=== PATIENT | male | born 1980 | race Caucasian/White ===

== ENCOUNTER 2023-03-21 14:40 | Emergency (ER) | payer SELFPAY ==
[2023-03-21] VITALS (8 sets, daily range): BP systolic 141–144; BP diastolic 85–92; PULSE 63–77; RESP 13–19; TEMP 36.6; O2SAT 93–98; BMI 29.5
--- NOTE | 2023-03-21 15:11 | DI.RAD.S_ITS ---
PROCEDURE: XR CHEST 1V INDICATIONS: chest pain TECHNIQUE: One view of the chest was acquired. COMPARISON: None. FINDINGS: Surgical changes and devices: None. Lungs and pleura: Lungs are clear. No pleural effusions or pneumothorax. Mediastinum: Mediastinal contours appear normal. Heart size is normal. Bones and chest wall: No suspicious bony lesions. Overlying soft tissues appear unremarkable. IMPRESSION: Portable chest within normal limits for age. Approved by: Arvin Marrero M.D. on 03/21/2023 at 16:07
[2023-03-21 15:52] LABS: Add Manual Diff / Slide Review NO; Basophils Absolute Auto 0 /uL (0-100); Basophils Percent Auto 0.6 % (0-2); Eosinophils Absolute Auto 100 /uL (0-450); Eosinophils Percent Auto 1.2 % (2-4); Hematocrit 46.8 % (41-53); Hemoglobin 16.1 g/dL (13.5-17.5); Lymphocytes Absolute Auto 1900 /uL (1100-4500); Lymphocytes Percent Auto 27.2 % (25-40); Mean Corpuscular HGB Conc 34.5 % (30-36); Mean Corpuscular Volume 95.8 fL (80-100); Monocytes Absolute Auto 600 /uL (0-900); Monocytes Percent Auto 8.3 % (3-14); Neutrophils Absolute Auto 4400 /uL (1500-7000); Neutrophils Percent Auto 62.7 % (50-75); Platelet Count 241 X10^3/uL (150-400); Red Blood Cell Count 4.89 X10^6/uL (4.5-5.9); Red Cell Distribution Width 13.4 % (11.6-14.8); White Blood Cell Count 7.1 X10^3/uL (4.5-11.0)
[2023-03-21 15:59] LABS: Prothrombin Time 11.4 SECONDS (10.1-12.7)
[2023-03-21 16:03] LABS: Alanine Aminotransferase 36 IU/L (<50); Albumin 4.4 g/dL (3.5-5.0); Albumin Globulin Ratio 1.5 (1.0-2.8); Alkaline Phosphatase 59 U/L (38-126); Aspartate Aminotransferase 27 IU/L (17-59); BUN Creatinine Ratio 13.4 (6-22); Bilirubin Total 1.3 mg/dL (0.2-1.3); Blood Urea Nitrogen 13 mg/dL (9-20); Calcium 9.7 mg/dL (8.4-10.2); Carbon Dioxide 24 mmol/L (22-32); Chloride 105 mmol/L (98-107); Creatine Kinase 189 U/L (55-170); Estimated Glomerular Filt Rate > 60 mL/min (>60); Glucose 100 mg/dL (70-100); HEMOLYSIS < 15 (0-50); Potassium 3.9 mmol/L (3.4-5.1); Sodium 139 mmol/L (137-145); Total Protein 7.4 g/dL (6.3-8.2)
--- NOTE | 2023-03-21 16:04 | ED.SYNCOPE ---
HPI - Syncope <Angelica Wilcox PA-C - Last Filed: 03/21/23 17:36> General Chief Complaint: Syncope Stated Complaint: working with black mold fainted at home Time Seen by Provider: 03/21/23 15:19 Source: patient Mode of arrival: Ambulatory History of Present Illness HPI narrative: 42-year-old male with no reported past medical history presents to the ED status post a syncopal episode that occurred last night. Patient states that he was sitting on a chair, had had 1 beer, he felt lightheaded and then passed out. The episode was witnessed by his boss who noted that he was out for about less than a minute prior to regaining consciousness. Patient states that he has never had syncope prior to this. Patient does not have a history of seizures. Patient had a prodromal sensation of lightheadedness to passing out. Patient has no cardiac history. Patient denies fever, chills, chest pain, shortness of breath, nausea, vomiting, abdominal pain. Patient states that he felt somewhat out of it for about an hour after regaining consciousness yesterday, but has felt fine since then. Patient comes into the ED today to be evaluated so he can be cleared to go back to work. Patient states he is somewhat concerned about mold toxicity, since he has been cleaning out a trailer with a lot of black mold without wearing PPE. Related Data Home Medications Medication Instructions Recorded Confirmed No Known Home Medications 03/21/23 03/21/23 Allergies Allergy/AdvReac Type Severity Reaction Status Date / Time No Known Drug Allergies Allergy Verified 03/21/23 15:11 Review of Systems <Angelica Wilcox PA-C - Last Filed: 03/21/23 17:36> Review of Systems ROS Unobtainable: All systems reviewed & are unremarkable except as noted in HPI and below Constitutional Constitutional: Denies chills, Denies fatigue, Denies fever(s), Denies frequent falls, Denies lethargy and Denies weakness Eyes Eyes: Denies change in vision, Denies eye discharge, Denies irritation and Denies loss of vision ENT Ears, Nose, Mouth, and Throat: Denies change in voice, Denies dizziness, Denies neck pain, Denies sore throat and Denies throat swelling Cardiovascular Cardiovascular: Denies chest pain, Reports syncope, Denies irregular heart rhythm, Reports lightheadedness, Denies palpitations, Denies dyspnea, Denies dyspnea on exertion and Denies orthopnea Respiratory Respiratory: Denies cough, Denies dyspnea, Denies dyspnea on exertion and Denies wheezing Gastrointestinal Gastrointestinal: Denies abdominal pain, Denies change in bowel habits, Denies diarrhea, Denies nausea and Denies vomiting Genitourinary Genitourinary: Denies hematuria, Denies flank pain, Denies urinary incontinence and Denies urinary urgency Musculoskeletal Musculoskeletal: Denies back pain, Denies muscle weakness, Denies neck pain, Denies numbness and Denies tingling Integumentary/Breasts Skin/Breast: Denies pruritus, Denies erythema, Denies rash and Denies wounds Neurologic Neurologic: Denies behavioral changes, Denies confusion, Denies dizziness, Reports syncope, Denies frequent falls, Denies loss of vision, Denies numbness, Denies tingling and Denies weakness Psychiatric Psychiatric: Denies anxiety, Denies behavioral changes, Denies confusion, Denies depression, Denies homicidal ideation and Denies suicidal ideation Endocrine Endocrine: Denies fatigue, Denies flushing and Denies palpitations Hematologic/Lymphatic Hematologic/Lymphatic: Denies easy bruising Allergic/Immunologic Allergic/Immunologic: Denies urticaria, Denies throat swelling and Denies wheezing Patient History <Angelica Wilcox PA-C - Last Filed: 03/21/23 17:36> Social History Smoking Status: Never smoker Smoking Status: Never smoker alcohol intake frequency: a few times a week Alcohol type: beer Substance Use Type: does not use Exam <Angelica Wilcox PA-C - Last Filed: 03/21/23 17:36> Narrative Exam Narrative: Const General:?cooperative, healthy appearing and comfortable [facility] Head:?normal to inspection Ears:?hearing grossly normal bilaterally Nose:?external nose normal Face and sinus:?normal facial exam and sinuses nontender Mouth:?oral mucosae normal Throat:?posterior oropharynx normal Eyes General:?appearance normal, both eyes and all related structures Neck Neck:?normal visual inspection and no lymphadenopathy noted Resp Effort & Inspection:?normal respiratory effort Auscultation:?clear to auscultation bilaterally Cardio Rate:?regular rate Rhythm:?regular rhythm Neuro General:?patient alert, patient awake and patient oriented x3 Initial Vital Signs Initial Vital Signs: Vital Signs Temperature 98 F 03/21/23 15:06 Pulse Rate 72 03/21/23 15:06 Respiratory Rate 17 03/21/23 15:06 Blood Pressure 144/92 H 03/21/23 15:06 Pulse Oximetry 98 03/21/23 15:06 Oxygen Delivery Method Room Air 03/21/23 15:06 <Tarun Mir DO - Last Filed: 03/21/23 17:49> Initial Vital Signs Initial Vital Signs: Vital Signs Temperature 98 F 03/21/23 15:06 Pulse Rate 72 03/21/23 15:06 Respiratory Rate 17 03/21/23 15:06 Blood Pressure 144/92 H 03/21/23 15:06 Pulse Oximetry 98 03/21/23 15:06 Oxygen Delivery Method Room Air 03/21/23 15:06 Course <Angelica Wilcox PA-C - Last Filed: 03/21/23 17:36> Orders Ordered: ED Orders 03/21/23 15:11 XR chest 1V Stat EKG-12 Lead Stat 03/21/23 15:34 Complete Blood Count AUTO DIFF Stat Comprehensive Metabolic Panel Stat Prothrombin Time INR Stat Troponin & CK Cardiac Panel Stat Vital Signs Vital signs: Vital Signs - 8 hr 03/21/23 15:06 03/21/23 15:29 03/21/23 15:30 Temperature 98 F Pulse Rate 72 75 67 Respiratory Rate 17 13 Blood Pressure 144/92 H Pulse Oximetry 98 94 93 Oxygen Delivery Method Room Air 03/21/23 16:00 03/21/23 16:30 03/21/23 17:00 Temperature Pulse Rate 63 66 74 Respiratory Rate 14 15 17 Blood Pressure Pulse Oximetry 93 94 93 Oxygen Delivery Method 03/21/23 17:28 03/21/23 17:28 03/21/23 17:30 Temperature Pulse Rate 77 65 Respiratory Rate 19 19 Blood Pressure 141/85 H Pulse Oximetry 94 96 Oxygen Delivery Method <DO Wes Quinonez Last Filed: 03/21/23 17:49> Orders Ordered: ED Orders 03/21/23 15:11 XR chest 1V Stat EKG-12 Lead Stat 03/21/23 15:34 Complete Blood Count AUTO DIFF Stat Comprehensive Metabolic Panel Stat Prothrombin Time INR Stat Troponin & CK Cardiac Panel Stat Vital Signs Vital signs: Vital Signs - 8 hr 03/21/23 15:06 03/21/23 15:29 03/21/23 15:30 Temperature 98 F Pulse Rate 72 75 67 Respiratory Rate 17 13 Blood Pressure 144/92 H Pulse Oximetry 98 94 93 Oxygen Delivery Method Room Air 03/21/23 16:00 03/21/23 16:30 03/21/23 17:00 Temperature Pulse Rate 63 66 74 Respiratory Rate 14 15 17 Blood Pressure Pulse Oximetry 93 94 93 Oxygen Delivery Method 03/21/23 17:28 03/21/23 17:28 03/21/23 17:30 Temperature Pulse Rate 77 65 Respiratory Rate 19 19 Blood Pressure 141/85 H Pulse Oximetry 94 96 Oxygen Delivery Method MDM - Syncope <Angelica Wilcox PA-C - Last Filed: 03/21/23 17:36> Lab Data 03/21/23 15:34 03/21/23 15:34 Labs: Lab Results 03/21/23 03/21/23 03/21/23 Range/Units 15:34 15:34 15:34 WBC 7.1 (4.5-11.0) X10^3/uL RBC 4.89 (4.5-5.9) X10^6/uL Hgb 16.1 (13.5-17.5) g/dL Hct 46.8 (41-53) % MCV 95.8 (80-100) fL MCH 33.0 (26-34) PG MCHC 34.5 (30-36) % RDW 13.4 (11.6-14.8) % Plt Count 241 (150-400) X10^3/uL Neut % (Auto) 62.7 (50-75) % Lymph % (Auto) 27.2 (25-40) % [place] % (Auto) 8.3 (3-14) % Eos % (Auto) 1.2 L (2-4) % Baso % (Auto) 0.6 (0-2) % Neut # (Auto) 4400 (5525-8415) /uL Lymph # (Auto) 1900 (7795-8914) /uL [place] # (Auto) 600 (0-900) /uL Eos # (Auto) 100 (0-450) /uL Baso # (Auto) 0 (0-100) /uL PT 11.4 (10.1-12.7) SECONDS INR 1.0 (0.9-1.3) Sodium 139 (137-145) mmol/L Potassium 3.9 (3.4-5.1) mmol/L Chloride 105 (98-107) mmol/L Carbon Dioxide 24 (22-32) mmol/L BUN 13 (9-20) mg/dL Creatinine 0.97 (0.66-1.25) mg/dL Estimated GFR > 60 (>60) mL/min BUN/Creatinine Ratio 13.4 (6-22) Glucose 100 (70-100) mg/dL Calcium 9.7 (8.4-10.2) mg/dL Total Bilirubin 1.3 (0.2-1.3) mg/dL AST 27 (17-59) IU/L ALT 36 (<50) IU/L Alkaline Phosphatase 59 (38-126) U/L Total Creatine Kinase 189 H (55-170) U/L Troponin I < 0.012 (0.01-0.034) ng/mL Total Protein 7.4 (6.3-8.2) g/dL Albumin 4.4 (3.5-5.0) g/dL Globulin 3.0 (1.7-4.1) g/dL Albumin/Globulin Ratio 1.5 (1.0-2.8) MDM Narrative Medical decision making narrative: 42-year-old male with no reported past medical history presents to the ED status post a syncopal episode that occurred last night. Obtained EKG, chest x-ray, labs, troponin. EKG is normal sinus rhythm with no acute ST-T changes. Chest x-ray without acute findings. Labs and troponin within normal limits. Based on history and physical exam, labs, patient's symptoms most consistent with vasovagal syncope. Recommend good hydration. Patient cleared for work. ED return precautions discussed with patient. Patient verbalized understanding. Medical records reviewed: Yes <Tarun Mir, DO - Last Filed: 03/21/23 17:49> Lab Data Labs: Lab Results 03/21/23 03/21/23 03/21/23 Range/Units 15:34 15:34 15:34 WBC 7.1 (4.5-11.0) X10^3/uL RBC 4.89 (4.5-5.9) X10^6/uL Hgb 16.1 (13.5-17.5) g/dL Hct 46.8 (41-53) % MCV 95.8 (80-100) fL MCH 33.0 (26-34) PG MCHC 34.5 (30-36) % RDW 13.4 (11.6-14.8) % Plt Count 241 (150-400) X10^3/uL Neut % (Auto) 62.7 (50-75) % Lymph % (Auto) 27.2 (25-40) % [place] % (Auto) 8.3 (3-14) % Eos % (Auto) 1.2 L (2-4) % Baso % (Auto) 0.6 (0-2) % Neut # (Auto) 4400 (7334-6376) /uL Lymph # (Auto) 1900 (7998-0826) /uL [place] # (Auto) 600 (0-900) /uL Eos # (Auto) 100 (0-450) /uL Baso # (Auto) 0 (0-100) /uL PT 11.4 (10.1-12.7) SECONDS INR 1.0 (0.9-1.3) Sodium 139 (137-145) mmol/L Potassium 3.9 (3.4-5.1) mmol/L Chloride 105 (98-107) mmol/L Carbon Dioxide 24 (22-32) mmol/L BUN 13 (9-20) mg/dL Creatinine 0.97 (0.66-1.25) mg/dL Estimated GFR > 60 (>60) mL/min BUN/Creatinine Ratio 13.4 (6-22) Glucose 100 (70-100) mg/dL Calcium 9.7 (8.4-10.2) mg/dL Total Bilirubin 1.3 (0.2-1.3) mg/dL AST 27 (17-59) IU/L ALT 36 (<50) IU/L Alkaline Phosphatase 59 (38-126) U/L Total Creatine Kinase 189 H (55-170) U/L Troponin I < 0.012 (0.01-0.034) ng/mL Total Protein 7.4 (6.3-8.2) g/dL Albumin 4.4 (3.5-5.0) g/dL Globulin 3.0 (1.7-4.1) g/dL Albumin/Globulin Ratio 1.5 (1.0-2.8) Discharge Plan Departure Patient Disposition: Home Clinical Impression: Vasovagal syncope Instructions: DI for Syncope in Adults (Fainting) Activity Restrictions/Additional Instructions: You were evaluated in the ED today for an episode of fainting. Your chest x-ray, EKG, labs were all normal. Your fainting was likely due to what is called a vasovagal syncope, which is common and benign. Please continue to stay well hydrated. You were clear to go back to work. Please do where protective gear when working with mold and other toxic substances. Please follow-up with your PCP as soon as possible. Return to the ED if you have worsening symptoms, repeat episodes of fainting. Prescriptions: No Action No Known Home Medications Referrals: Miscellaneous,Doctor, MD [Primary Care Provider] - Stand Alone Forms: Patient Portal/API, Work Release Note <Tarun Mir DO - Last Filed: 03/21/23 17:49> Cosign ED Attending Cosignature Attestation: Dr Mir Co-Sign Statement: I was available for consultation during this patient's emergency department visit. This chart is signed by myself for administrative purposes only. I did not have direct contact with this patient during this visit. They were seen independently by the APC.
[2023-03-21 16:15] LABS: Troponin I < 0.012 ng/mL (0.01-0.034)
== END 2023-03-21 17:37 | disposition home or self-care (01) ==
PROVIDERS: Emergency Medicine; Emergency Provider Student in an Organized Health Care Education/Training Program
DX: R55 Syncope and collapse (principal); R03.0 Elevated blood-pressure reading, without diagnosis of hypertension
CPT/HCPCS: 36415; 71045; 80053; 82550; 84484; 85025; 85610; 93005; 99283; 99284

== ENCOUNTER 2023-05-30 14:04 | Emergency (ER) | payer SELFPAY ==
[2023-05-30 14:06] VITALS: BP 141/84; PULSE 78; RESP 18; TEMP 36.8; O2SAT 98; BMI 32.5
--- NOTE | 2023-05-30 14:13 | DI.RAD.S_ITS ---
PROCEDURE: XR HAND RT MIN 3V INDICATIONS: cut with steakknife TECHNIQUE: 3 views of the hand(s) acquired. COMPARISON: None. FINDINGS: Bones: No acute fractures or dislocations. Chronic 5th metacarpal fracture which is healed in mild deformity. Carpal bones are normally aligned. No suspicious bony lesions. Soft tissues: No suspicious soft tissue calcifications. IMPRESSION: No acute bony abnormality. Dictated by: Mary Villegas MD, PhD on 05/30/2023 at 14:39 Approved by: Mary Villegas MD, PhD on 05/30/2023 at 14:39
--- NOTE | 2023-05-30 15:11 | ED_ITS ---
HPI - Extremity Injury (Upper) <Angelica Wilcox PA-C - Last Filed: 05/30/23 15:35> General Chief Complaint: Extremity Injury, Upper Stated Complaint: sent by [facility] hand injury Time Seen by Provider: 05/30/23 14:17 Source: patient Mode of arrival: Ambulatory History of Present Illness HPI narrative: 42-year-old male presents to the ED with a right hand laceration sustained at 1999 yesterday. Patient was seen at the [facility] this morning, was given a Tdap, sent to the ED for further evaluation. Patient is currently on amoxicillin for a dental infection. Unclear why the laceration was not repaired. Patient denies numbness, tingling, weakness. Patient endorses pain at the site of the laceration. Patient states that he sustained the laceration accidentally when he was trying to open a bunch of heavy boxes yesterday. Patient is left-hand dominant. Related Data Previous Rx's Medication Instructions Recorded amoxicillin 875 mg-potassium 1 tab PO BID #14 tabs 05/27/23 clavulanate 125 mg tablet Allergies Allergy/AdvReac Type Severity Reaction Status Date / Time No Known Drug Allergies Allergy Verified 05/30/23 10:38 Review of Systems <Angelica Wilcox PA-C - Last Filed: 05/30/23 15:35> Constitutional Constitutional: Denies chills, Denies fatigue, Denies fever(s), Denies frequent falls, Denies lethargy and Denies weakness Eyes Eyes: Denies change in vision, Denies eye discharge, Denies irritation and Denies loss of vision ENT Ears, Nose, Mouth, and Throat: Denies change in voice, Denies dizziness, Denies neck pain, Denies sore throat and Denies throat swelling Cardiovascular Cardiovascular: Denies chest pain, Denies irregular heart rhythm, Denies lightheadedness, Denies palpitations, Denies dyspnea, Denies dyspnea on exertion and Denies orthopnea Respiratory Respiratory: Denies cough, Denies dyspnea, Denies dyspnea on exertion and Denies wheezing Gastrointestinal Gastrointestinal: Denies abdominal pain, Denies change in bowel habits, Denies diarrhea, Denies nausea and Denies vomiting Musculoskeletal Musculoskeletal: Denies neck pain and Denies numbness Integumentary/Breasts Skin/Breast: Denies pruritus, Denies erythema, Denies rash and Denies wounds Comments: Right hand laceration Neurologic Neurologic: Denies behavioral changes, Denies confusion, Denies dizziness, Denies frequent falls, Denies loss of vision, Denies numbness and Denies weakness Psychiatric Psychiatric: Denies anxiety, Denies behavioral changes, Denies confusion, Denies depression, Denies homicidal ideation and Denies suicidal ideation Endocrine Endocrine: Denies fatigue, Denies flushing and Denies palpitations Hematologic/Lymphatic Hematologic/Lymphatic: Denies easy bruising Allergic/Immunologic Allergic/Immunologic: Denies urticaria, Denies throat swelling and Denies wheezing Patient History <Angelica Wilcox PA-C - Last Filed: 05/30/23 15:35> Social History Smoking Status: Smoker, status unknown Smoking Status: Smoker, status unknown alcohol intake frequency: a few times a week Alcohol type: beer Substance Use Type: does not use Exam <Angelica Wilcox PA-C - Last Filed: 05/30/23 15:35> Narrative Exam Narrative: Const General:?cooperative, healthy appearing and comfortable [facility] Head:?normal to inspection Ears:?hearing grossly normal bilaterally Nose:?external nose normal Face and sinus:?normal facial exam and sinuses nontender Mouth:?oral mucosae normal Throat:?posterior oropharynx normal Eyes General:?appearance normal, both eyes and all related structures Neck Neck:?normal visual inspection and no lymphadenopathy noted Resp Effort & Inspection:?normal respiratory effort Auscultation:?clear to auscultation bilaterally Cardio Rate:?regular rate Rhythm:?regular rhythm Integumentary There is a 1.5 cm linear laceration to the thenar eminence of the right hand. Bleeding is controlled with pressure. No deeper structures visualized on exam. There is full range of motion. Strength and sensation is intact. Patient is neurovascularly intact. Compartments are soft. Neuro General:?patient alert, patient awake and patient oriented x3 Initial Vital Signs Initial Vital Signs: Vital Signs Temperature 98.2 F 05/30/23 14:06 Pulse Rate 78 05/30/23 14:06 Respiratory Rate 18 05/30/23 14:06 Blood Pressure 141/84 H 05/30/23 14:06 Pulse Oximetry 98 05/30/23 14:06 Oxygen Delivery Method Room Air 05/30/23 14:06 <Meghan Mckinley DO - Last Filed: 06/04/23 07:10> Initial Vital Signs Initial Vital Signs: Vital Signs Temperature 98.2 F 05/30/23 14:06 Pulse Rate 78 05/30/23 14:06 Respiratory Rate 18 05/30/23 14:06 Blood Pressure 141/84 H 05/30/23 14:06 Pulse Oximetry 98 05/30/23 14:06 Oxygen Delivery Method Room Air 05/30/23 14:06 Procedures <ERIC Bee Last Filed: 05/30/23 15:35> Laceration Repair Laceration 1: Site: hand Side (If applicable): right Size (cm): 1.5 Description: linear Depth: simple, single layer Local Anesthetic: lidocaine 1% Amount of anesthesia used (mL): 2 Pre-repair: wound explored, irrigated extensively and deep structures intact Skin layer closed with: nylon Skin layer suture size: 5-0 Number of sutures: 3 Technique: simple, interrupted Course <ERIC Bee Last Filed: 05/30/23 15:35> Orders Ordered: Discontinued Medications Lidocaine HCl (Lidocaine 1% (Pf) 5 Ml) 5 ml INJ NOW ONE Stop: 05/30/23 14:55 Vital Signs Vital signs: Vital Signs - 8 hr 05/30/23 14:06 Temperature 98.2 F Pulse Rate 78 Respiratory Rate 18 Blood Pressure 141/84 H Pulse Oximetry 98 Oxygen Delivery Method Room Air <Meghan Mckinley DO - Last Filed: 06/04/23 07:10> Orders Ordered: Discontinued Medications Lidocaine HCl (Lidocaine 1% (Pf) 5 Ml) 5 ml INJ NOW ONE Stop: 05/30/23 14:55 Vital Signs Vital signs: Vital Signs - 8 hr 05/30/23 14:06 Temperature 98.2 F Pulse Rate 78 Respiratory Rate 18 Blood Pressure 141/84 H Pulse Oximetry 98 Oxygen Delivery Method Room Air MDM - Extremity Injury (Upper) <ERIC Bee Last Filed: 05/30/23 15:35> MDM Narrative Medical decision making narrative: 42-year-old male presents to the ED with a right hand laceration sustained at 1999 yesterday. X-ray was obtained to rule out foreign object, fracture/disloc ation. X-ray did not show any acute fractures or dislocations or foreign bodies. There is a chronic 5th metacarpal fracture, however does not clinically correlate to today's injury. Given that it is about 19 hours from the injury, it is on the hand, there is increased risk of infection from primary closure. 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 Also reassuring is that patient is already on antibiotics. Will loosely approximate with sutures. Counseled patient on monitoring for signs of infection. ED return precautions discussed with patient. Patient verbalized understanding. Medical records reviewed: Yes Discharge Plan Departure Patient Disposition: Home Clinical Impression: Laceration Instructions: DI for Laceration Repair Activity Restrictions/Additional Instructions: You were evaluated in the ED today for a right hand injury. The laceration was repaired using 3 sutures. The sutures will need to be removed in 7-10 days. You may return to the ED or go to a walk-in clinic or your PCP for suture removal. Please watch for signs of infection including worsening redness, pain, swelling, warmth, discharge. Return to the ED or go to your PCP if you note any signs of infection. Please keep the wound clean and dry for the 1st 24 hours. You may gently wash with soap and water after that. Please keep the wound covered with a cushioned dressing, please do not keep wet dressings on for any period of time. Prescriptions: No Action amoxicillin-pot clavulanate 875-125 mg tablet 1 tab PO BID Qty: 14 0RF Referrals: Denise Baez PA-C [Primary Care Provider] - Stand Alone Forms: Patient Portal/API ED Sign-out <Meghan Mckinley DO - Last Filed: 06/04/23 07:10> Cosign ED Attending Jyothi Attestation: I was immediately available in the department for consultation.
[2023-05-30 15:51] VITALS: BP 130/75; PULSE 66; RESP 18; TEMP 36.6; O2SAT 95
== END 2023-05-30 15:52 | disposition home or self-care (01) ==
PROVIDERS: Emergency Provider Student in an Organized Health Care Education/Training Program; PCP Physician Assistant
DX: S61.411A Laceration without foreign body of right hand, initial encounter (principal); X58.XXXA Exposure to other specified factors, initial encounter
CPT/HCPCS: 12001; 73130; 99282; 99283

== ENCOUNTER 2025-03-29 13:47 | Emergency (ER) | payer OTHER, SELFPAY ==
[2025-03-29 14:04] VITALS: BP 115/84; PULSE 72; RESP 18; TEMP 36.9; O2SAT 96; BMI 24.3
--- NOTE | 2025-03-29 16:32 | PC.NURSE ---
no obvious deformities and pt weight bearing
--- NOTE | 2025-03-29 16:55 | ED_ITS ---
HPI - Extremity Injury (Lower) General Chief Complaint: Extremity Injury, Lower Stated Complaint: fell at work on Mon, pc ref, L knee pn Time Seen by Provider: 03/29/25 14:19 Source: patient Mode of arrival: Ambulatory History of Present Illness HPI Narrative: 44-year-old gentleman with left knee pain that started Monday after getting off the boat where his left foot got tangled before he left the floor neck and he landed on both knees seen on Monday at [facility] where he had negative x-rays completed. He is still symptomatic feeling there is a grinding noise when he walks and in significant pain with ambulation. He has not want to take any medicine for pain. Other than what is stated 14 point review of system is negative. Related Data Home Medications ?Medication ?Instructions ?Recorded ?Confirmed No Known Home Medications 03/26/2507/20 Allergies Allergy/AdvReac Type Severity Reaction Status Date / Time No Known Drug Allergies Allergy Verified 03/29/25 14:09 Review of Systems Review of Systems ROS Unobtainable: All systems reviewed & are unremarkable except as noted in HPI and below Patient History Social History Smoking Status: Never smoker Smoking Status: Never smoker alcohol intake frequency: a few times a week Alcohol type: beer Exam Narrative Exam Narrative: GENERAL: [44] year old patient appears stated age. Well-developed patient, in mild distress. HEAD: Atraumatic. Normocephalic. EYES: Pupils equal round and reactive. Extraocular motions intact. No scleral icterus. No injection or drainage. EXTREMITIES: No edema or joint tenderness. Left knee medial joint line tenderness, varus valgus intact anterior posterior drawer intact Charles's memory intact full range of motion in flexion and extension. + 2 DP +2 PT cap refill less than 2 seconds. BACK: Nontender without deformity or crepitance. No flank tenderness. NEURO: AOx3. SKIN: No rash or erythema of visible areas Initial Vital Signs Initial Vital Signs: Vital Signs Temperature 98.5 F 03/29/25 14:04 Pulse Rate 72 03/29/25 14:04 Respiratory Rate 18 03/29/25 14:04 Blood Pressure 115/84 03/29/25 14:04 Pulse Oximetry 96 03/29/25 14:04 Oxygen Delivery Method Room Air 03/29/25 14:04 Course Orders Ordered: ED Orders 03/29/25 17:01 CT LE LT wo con Stat 03/29/25 18:12 Consult to [facility] Stat Vital Signs Vital signs: Vital Signs - 8 hr 03/29/25 14:04 Temperature 98.5 F Pulse Rate 72 Respiratory Rate 18 Blood Pressure 115/84 Pulse Oximetry 96 Oxygen Delivery Method Room Air MDM - Extremity Injury (Lower) Imaging Data Extremity x-ray #1: Radiologist's Impression: [place] [address] CT Scan Report Signed Patient: Parminder Martinez MR#: [id number] : 1980 Acct:[id number] Age/Sex: 44 / M Date of Service: 03/29/25 Loc: ED Accession Number: [id number] Procedure: CT LE LT wo con Ordering Provider: Juan Antony D.O. PROCEDURE: CT LE LT W CON INDICATIONS: L knee pain TECHNIQUE: Noncontrast 1-1.5 mm axial sections acquired from the mid-patella to the proximal tibia, with coronal and sagittal reformats. COMPARISON: [facility] ([place]), CR, XR KNEE LT 3V, 03/26/2025, 14:50. FINDINGS: Image quality: Excellent. Bones: No fracture. Joint spaces are preserved. Tiny osteophytes. Soft tissues: Small effusion IMPRESSION: No fracture [facility] Narrative Medical decision making narrative: Vital sign,s nurse triage note, medication list, previous ER visits, and all imaging studies reviewed. CT scan showed no fracture small effusion joint spaces are well-preserved tiny osteophytes. Differential diagnosis includes meniscal vs ligament injury, dislocation, fracture, osteoarthritis, sprain. Patient offered pain medication at discharge and declined. We will refer patient to the [facility]. Discharge Plan Departure Patient Disposition: Home Clinical Impression: Left knee pain Qualifiers: Chronicity: acute Qualified Code(s): M25.562 - Pain in left knee Instructions: DI for Knee Pain Activity Restrictions/Additional Instructions: Return with new or worsening symptoms. Follow up with [facility] referral. 3 day work note. Prescriptions: No Action No Known Home Medications Referrals: Maria D Christianson ND [Primary Care Provider, Naturopathy] Stand Alone Forms: Patient Portal/API
--- NOTE | 2025-03-29 17:01 | DI.CT.S_ITS ---
PROCEDURE: CT LE LT W CON INDICATIONS: L knee pain TECHNIQUE: Noncontrast 1-1.5 mm axial sections acquired from the mid-patella to the proximal tibia, with coronal and sagittal reformats. COMPARISON: [facility] ([place]), CR, XR KNEE LT 3V, 03/26/2025, 14:50. FINDINGS: Image quality: Excellent. Bones: No fracture. Joint spaces are preserved. Tiny osteophytes. Soft tissues: Small effusion IMPRESSION: No fracture Dictated by: Mani Aparicio M.D. on 03/29/2025 at 17:01 Approved by: Mani Aparicio M.D. on 03/29/2025 at 17:03
== END 2025-03-29 18:34 | disposition home or self-care (01) ==
PROVIDERS: Emergency Provider Family Medicine; PCP Naturopath
DX: M25.562 Pain in left knee (principal); W18.30XA Fall on same level, unspecified, initial encounter
CPT/HCPCS: 73700; 99281; 99284

== ENCOUNTER → 2025-06-15 15:46 | Outpatient (CLI) | payer OTHER, SELFPAY ==
--- NOTE | 2025-06-15 15:48 | DI.MRI.S_ITS ---
PROCEDURE: MR KNEE LT WO CON INDICATIONS: Medial sided joint pain s/p work injury TECHNIQUE: Noncontrast sagittal PD fast spin echo and T2 fast spin echo with fat saturation, sagittal 3-D FLASH with fat saturation; coronal T1 spin echo and PD fast spin echo with fat saturation, and axial PD fast spin echo with fat saturation through the knee. COMPARISON: None. FINDINGS: Quality: Adequate Menisci: Medial meniscus: Horizontal tear of the body and posterior horn which extends to the posterior root Lateral meniscus: Intact Cruciate ligaments: Anterior cruciate ligament: Intact Posterior cruciate ligament: Intact Collateral ligaments: Medial collateral ligament: Intact Lateral collateral ligament complex: Intact Extensor mechanism: Quadriceps tendon: Intact Patellar tendon: Intact Retinaculum: Intact Fat pads: Unremarkable Cartilage: Full-thickness cartilage fissuring in the weight-bearing portion of medial femoral condyle with possible delamination. Shallow fissuring in the central patella. Bones: No fracture. Fluid spaces: Joint: Physiologic fluid. Popliteal cyst: Small popliteal cyst with partial rupture. Other: None IMPRESSION: Large medial meniscus tear. High-grade cartilage defects in the medial compartment. Small popliteal cyst with partial rupture. Dictated by: Gilberto Benitez M.D. on 06/16/2025 at 9:46 Approved by: Gilberto Benitez M.D. on 06/16/2025 at 9:50
== END ==
LOC: MRI 15:47
PROVIDERS: PCP Naturopath; Referring Provider Physician Assistant Surgical; Visit Provider Physician Assistant Surgical
DX: S83.242A Other tear of medial meniscus, current injury, left knee, initial encounter (principal); M23.92 Unspecified internal derangement of left knee; M25.562 Pain in left knee; M66.0 Rupture of popliteal cyst
CPT/HCPCS: 73721